=== PATIENT | female | born 2005 | race Caucasian/White ===

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

== ENCOUNTER → 2024-03-01 13:02 | Outpatient (BNVA) | payer OTHER, SELFPAY | PROVIDERS: Family Provider Pediatrics Adolescent Medicine; PCP Pediatrics Adolescent Medicine; Visit Provider Registered Nurse Neonatal Intensive Care | DX: O26.90 Pregnancy related conditions, unspecified, unspecified trimester (principal); Z32.02 Encounter for pregnancy test, result negative; Z3A.00 Weeks of gestation of pregnancy not specified | CPT/HCPCS: 81025 ==

== ENCOUNTER 2024-03-17 19:16 | Emergency (ER) | payer OTHER, SELFPAY ==
[2024-03-17 19:16] VITALS: BP 117/83; PULSE 93; RESP 16; TEMP 36.8; O2SAT 98
--- NOTE | 2024-03-17 19:27 | W.ED.FEMALGU ---
HPI - Female Genitourinary General: Chief complaint: Vaginal Bleeding Stated complaint: Abd Pain Time Seen by Provider: 03/17/24 19:23 Source: patient Mode of arrival: ambulatory Limitations: no limitations History of Present Illness: 18-year-old female who states she is concerned she may be she states she is a couple weeks late for her menstruation she states she is just felt funny and had some slight abdominal cramping with some vaginal spotting she denies any severe pain denies any heavy bleeding denies any fever Associated symptoms: Reports abdominal pain; Deny headache(s) or nausea Date of Last Menstrual Period: 02/04/24 Review of Systems Const: Denies: fever(s), chills, body aches or change in appetite Eyes: Denies: eye discomfort ENMT: Denies: throat pain or dental pain Card: Denies: chest pain Resp: Denies: dyspnea GI: Reports: abdominal pain; Denies: nausea, vomiting or diarrhea : Reports: vaginal bleeding; Denies: dysuria Musc: Denies: neck pain or back pain Skin/Breast: Denies: rash Neuro: Denies: headache(s) PFSH ED PFSH: Medical History Moderate major depression, single episode Generalized anxiety disorder Psychiatric care Family History Other Diabetes Hyperlipidemia Hypertension Lung disease Denies family history of CAD (coronary artery disease) Clotting disorder Dementia Psychiatric illness Chronic kidney disease (CKD) Anesthesia complication Bleeding disorder Cancer Stroke Social History Smoking and tobacco/nicotine status: never used tobacco/nicotine Second hand smoke exposure: No Alcohol intake: never Substance/Drug Use: never Adopted: No Lives independently: Yes Highest education level completed: High School Graduate Current occupational status: employed Current occupation: [employer] Special cait needs: No Agree to transfusion: Yes Female Reproductive History: Date of last menstrual period: 02/04/24 Physical Exam Const: COMMON NORMALS: no acute distress, patient oriented x3 and healthy appearing HENMT: COMMON NORMALS: normocephalic and atraumatic HEAD & SCALP: normocephalic and atraumatic Neck/C-Spine: COMMON NORMALS: full ROM and supple Chest: COMMONS NORMALS: normal inspection of the chest Resp: COMMON NORMALS: normal respiratory effort Cardio: COMMON NORMALS: regular rate, regular rhythm and No murmurs present (Cardio) RATE: regular rate RHYTHM: regular rhythm GI: COMMON NORMALS: Normal to inspection, nondistended, normoactive bowel sounds present, Soft to palpation, non-tender and no masses PALPATION: Yes Soft to palpation Extremity: COMMON NORMALS: normal to inspection and full ROM Neuro: COMMON NORMALS: patient oriented x3, moves all extremities and no focal motor deficits Psych: COMMON NORMALS: mental status grossly normal, Normal thought process present and cooperative THOUGHT PROCESS: Normal thought process present Skin: COMMON NORMALS: no rashes or lesions noted and no wounds GENERAL SKIN EXAM: no rashes or lesions noted Course Vital Signs: Vital signs: Vital Signs Temperature 98.2 F 03/17/24 19:16 Pulse Rate 93 03/17/24 19:16 Respiratory Rate 16 03/17/24 19:16 Blood Pressure 117/83 03/17/24 19:16 Pulse Oximetry 98 03/17/24 19:16 Oxygen Delivery Me thod Room Air 03/17/24 19:16 MDM - Female Medical Decision Making Patient presents here with concern for being she had some slight vaginal bleeding likely the start of her menses her test here is negative blood works normal she stable for discharge she is follow-up with PCP return if worsening Medical Records I reviewed the patient's medical records. Lab Data I reviewed the patient's lab results. 03/17/24 19:32 03/17/24 19:32 Laboratory Results WBC 6.63 10^3/uL (4.5-13.0) 03/17/24 19:32 RBC 5.48 10^6/uL (3.85-5.65) 03/17/24 19:32 Hgb 13.60 g/dL (12.4-14.8) 03/17/24 19:32 Hct 44.6 % (36-47) 03/17/24 19:32 MCV 81.4 fl (85-98) L 03/17/24 19:32 MCH 24.8 pg (27-33) L 03/17/24 19:32 MCHC 30.5 g/dL (30-55) 03/17/24 19:32 RDW 13.8 % (12.1-15.1) 03/17/24 19:32 Plt Count 155 10^3/cmm (157-399) L 03/17/24 19:32 MPV 13.6 fL (7.4-10.4) H 03/17/24 19:32 Neut % (Auto) 63.0 % 03/17/24 19:32 Lymph % (Auto) 29.4 % 03/17/24 19:32 [place] % (Auto) 6.3 % 03/17/24 19:32 Eos % (Auto) 0.6 % 03/17/24 19:32 Baso % (Auto) 0.5 % 03/17/24 19: Neut # (Auto) 4.18 10^3/uL (1.8-8.0) 03/17/24 19: Lymph # (Auto) 2.0 10^3/uL (1.5-6.5) 03/17/24 19: [place] # (Auto) 0.4 10^3/uL (0.2-0.9) 03/17/24 19: Eos # (Auto) 0.0 10^3/uL (0.0-0.8) 03/17/24: Baso # (Auto) 0.0 10^3/uL (0.0-0.1) 03/17/24 19: Nucleated RBC % (auto) 0 % 03/17/24: Nucleated RBCs # 0.0 /100WBC 03/17/24 19:32 Sodium 142 mmol/L (136-145) 03/17/24 19:32 Potassium 3.7 mmol/L (3.5-5.1) 03/17/24 19:32 Chloride 102 mmol/L (98-107) 03/17/24 19:32 Carbon Dioxide 27 mmol/L (22-29) 03/17/24 19:32 Anion Gap 16.7 (5-19) 03/17/24 19:32 BUN 5 mg/dL (6-20) L 03/17/24 19:32 Creatinine 0.6 mg/dL (0.5-0.9) 03/17/24 19:32 GFR Calculation 127.5 mL/min (90-130) 03/17/24 19:32 Glucose 94 mg/dL (65-115) 03/17/24 19:32 Calculated Osmolality 291 mOsm/kg (285-295) 03/17/24 19:32 Calcium 9.3 mg/dL (8.5-10.5) 03/17/24 19:32 Ser , Semi-Qnt 1.00 mIU/mL 03/17/24 19:32 No radiology studies performed this visit Discharge Plan Discharge Patient Disposition: Home Clinical Impression: Vaginal bleeding Condition: Stable Prescriptions: No Action escitalopram oxalate 5 mg tablet 5 mg PO DAILY 30 Days Qty: 30 3RF Discharge Orders: Discharge ED (Routine); Ordered 03/17/24 Ordered By: Cha Spaulding Referrals: Natalie Loco MD [Primary Care Provider] - 4-7 days Discharge Diet: Advance as tolerated Discharge Activity: Resume usual activity Patient Instructions: Abnormal (Dysfunctional) Uterine Bleeding (ED) Coding Level of Care Code ED System Dispatcher for Willie Santos
[2024-03-17 19:48] LABS: Basophils % 0.5 %; Eosinophils % 0.6 %; Hematocrit 44.6 % (36-47); Lymphocytes % 29.4 %; Mean Corpuscular HGB Conc 30.5 g/dL (30-55); Mean Corpuscular Hemoglobin 24.8 pg (27-33); Mean Corpuscular Volume 81.4 fl (85-98); Mean Platelet Volume 13.6 fL (7.4-10.4); Monocytes # 0.4 10^3/uL (0.2-0.9); Monocytes % 6.3 %; Neutrophils # 4.18 10^3/uL (1.8-8.0); Nucleated Red Blood Cells % 0 %; Platelet Count 155 10^3/cmm (157-399); Red Blood Count 5.48 10^6/uL (3.85-5.65); Red Cell Distribution Width 13.8 % (12.1-15.1); White Blood Count 6.63 10^3/uL (4.5-13.0)
[2024-03-17 19:51] VITALS: BP 106/69; PULSE 93; O2SAT 100
[2024-03-17 20:16] LABS: Anion Gap 16.7 (5-19); Blood Urea Nitrogen 5 mg/dL (6-20); Calcium 9.3 mg/dL (8.5-10.5); Carbon Dioxide 27 mmol/L (22-29); Chloride 102 mmol/L (98-107); Creatinine Clr Calc Pharmacy 144.2431; Glomerular Filtration Rate 127.5 mL/min (90-130); Glucose 94 mg/dL (65-115); Osmolality Calculated 291 mOsm/kg (285-295); Potassium 3.7 mmol/L (3.5-5.1); Sodium 142 mmol/L (136-145)
[2024-03-17 20:21] VITALS: BP 119/74; PULSE 92; O2SAT 100
[2024-03-17 20:33] LABS: Slide Review Slide Review Perform
[2024-03-17 21:30] VITALS: BP 109/69; PULSE 100; RESP 82; O2SAT 100
== END 2024-03-17 21:31 | disposition home or self-care (01) ==
PROVIDERS: Emergency Provider Emergency Medicine; PCP Pediatrics Adolescent Medicine
DX: N93.9 Abnormal uterine and vaginal bleeding, unspecified (principal)
CPT/HCPCS: 80048; 84702; 85025; 99283